=== PATIENT | female | born 2000 | race African-American/Black ===

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

== ENCOUNTER 2021-03-20 17:34 | Emergency (ER) | payer OTHER ==
[~2021-03-20] VITALS: Ht 149.9 cm; Wt 46.3 kg
[~2021-03-20 17:34] MED LIST: COLACE100 MG PO; FEOSOL325 M1 PO; LEVAQUIN 500 M500 M2 PO; TYLENOL325 MG PO
[2021-03-20 18:12] LABS: URINE BLOOD 3+ (Negative); URINE CLARITY CLOUDY; URINE COLOR YELLOW; URINE GLUCOSE-RANDOM* NEGATIVE (Negative); URINE KETONES NEGATIVE (Negative); URINE NITRITE-REFLEX NEGATIVE (Negative); URINE PROTEIN (DIPSTICK) 2+ (Negative); URINE SPECIFIC GRAVITY >= 1.030 (1.005-1.035); URINE UROBILINOGEN 0.2 E.U./dl (0.2-1.0)
[2021-03-20 18:21] LABS: ICTOTEST (BILI CONFIRMATORY) Negative (Negative); URINE BILIRUBIN NEGATIVE (Negative); URINE LEUKOCYTES-REFLEX 1+ (Negative)
[2021-03-20 18:38] LABS: MUCUS 4-6 Moderate strn/LPF (None Seen); SQUAMOUS 4-10 Moderate /LPF (0-3); URINE WBC-REFLEX >25 Many /HPF (0-5)
[2021-03-20] MEDS ORDERED: DOXYCYCLINE 10100 MG PO (21:12)
[2021-03-20] MEDS ORDERED: AZITHROMYCIN500 MG PO (21:13)
[2021-03-20 21:36] VITALS: BP 107/66
== END 2021-03-20 21:37 | disposition home or self-care (01) ==
LOC: ER 17:34
PROVIDERS: Nurse Practitioner
DX: N39.0 Urinary tract infection, site not specified (principal); R10.2 Pelvic and perineal pain; Z79.891 Long term (current) use of opiate analgesic; Z79.899 Other long term (current) drug therapy; Z88.1 Allergy status to other antibiotic agents; Z88.0 Allergy status to penicillin